=== PATIENT | female | born 1985 | race African-American/Black ===

== ENCOUNTER 2016-11-30 10:56 | Emergency (ER) | payer OTHER ==
[~2016-11-30] VITALS: Ht 165.1 cm; Wt 49.9 kg
[2016-11-30] MEDS ORDERED: fentaNYL PF VIAL 100 MCG/2 ML VIAL IV PRN (12:30)
[2016-11-30 12:33] LABS: BILIRUBIN,URINE NEGATIVE (NEG); GLUCOSE,URINE NEGATIVE (NEG); NITRITE,URINE POSITIVE (NEG); PH,URINE 5.5; PROTEIN,URINE 30 mg/dL (NEG-TRACE)
[2016-11-30 12:40] LABS: BACTERIA,URINE MANY /HPF (0-FEW); SQUAMOUS EPITHELIAL CELL,UR MOD /LPF; WBC,URINE TNTC /HPF (0-4)
[2016-11-30] MEDS ORDERED: ONDANSETRON PF 4 MG/2 ML VIAL. IV ONE (12:45)
--- NOTE | 2016-11-30 12:54 | RAD ---
Right upper quadrant abdominal ultrasound, 11/30/2016: History: Epigastric and right upper quadrant pain The gallbladder is within normal limits in size. There is no sonographic evidence of cholelithiasis. The gallbladder zheng are not thickened. No bile duct dilatation is seen. The visualized portions of liver, pancreas and right kidney are unremarkable. IMPRESSION: No significant abnormality is detected.
[2016-11-30] MEDS ORDERED: IV NORMAL SALINE 1000ML BAG 1,000 ML IV SCH (13:00)
[2016-11-30 13:21] LABS: BASO % 0 % (0-3); EOS % 0 % (0-3); HEMATOCRIT 37.1 % (36.0-47.0); HEMOGLOBIN 12.5 g/dL (12.0-15.5); LYMPH # 0.8 x10^3/uL (1.0-4.8); LYMPH % 7 % (24-48); MEAN CORPUSCULAR HEMOGLOBIN 32 pg (25-35); MEAN CORPUSCULAR HGB CONC 34 g/dL (31-37); MEAN CORPUSCULAR VOLUME 93 fL (79-100); MONO % 6 % (0-9); NEUT % 87 % (31-73); PLATELET COUNT 150 x10^3/uL (140-400); RED BLOOD COUNT 3.97 x10^6/uL (3.50-5.40); RED CELL DISTRIBUTION WIDTH 12.8 % (11.5-14.5); WHITE BLOOD COUNT 11.2 x10^3/uL (4.0-11.0)
[2016-11-30 13:34] LABS: CALCIUM 9.1 mg/dL (8.5-10.1); CREATININE 0.7 mg/dL (0.6-1.0); GFR 116.6; POTASSIUM 3.6 mmol/L (3.5-5.1)
[2016-11-30 13:37] LABS: ALBUMIN 3.8 g/dL (3.4-5.0); TOTAL BILIRUBIN 0.8 mg/dL (0.2-1.0); TOTAL PROTEIN 7.7 g/dL (6.4-8.2)
[2016-11-30 14:50] LABS: OVALOCYTES OCC; PLT ESTIMATE ADEQUATE (ADEQUATE); POLYCHROMASIA SLIGHT; TARGET CELLS OCC
[2016-11-30] MEDS ORDERED: CEFP200T PO (15:49)
[2016-11-30] MEDS ORDERED: HYDR-971 PO (15:49)
[2016-11-30] MEDS ORDERED: ONDA4TAB10 SL (15:49)
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
[2016-11-30 16:00] VITALS: BP 127/74
== END 2016-11-30 16:21 | disposition home or self-care (01) ==
LOC: ER 10:56
DX: N10 Acute pyelonephritis (principal); Z98.51 Tubal ligation status
CPT/HCPCS: 36415; 76705; 80053; 81001; 81025; 83690; 85007; 85027; 87086; 96361; 96365; 96375; 99285; J0690; J2405; J3010; J7030; 87186

== ENCOUNTER 2017-05-14 09:50 | Emergency (ER) | payer OTHER ==
[2017-05-14 10:38] LABS: URINE HCG POC HCG NEGATIVE (Negative)
[2017-05-14] MEDS ORDERED: 0.9 % SODIUM CHLORIDE 10 ML DISP.SYRIN. IV (11:00)
[2017-05-14 11:06] LABS: BILIRUBIN,URINE SMALL (NEG); CLARITY,URINE CLEAR; COLOR,URINE YELLOW; GLUCOSE,URINE NEGATIVE (NEG); NITRITE,URINE NEGATIVE (NEG); PROTEIN,URINE NEGATIVE (NEG-TRACE)
[2017-05-14 11:17] LABS: SQUAMOUS EPITHELIAL CELL,UR MANY /LPF
[2017-05-14 11:18] LABS: BACTERIA,URINE FEW /HPF (0-FEW)
[2017-05-14] MEDS: ONDANSETRON PF 4 MG/2 ML VIAL. IV (11:33)
[2017-05-14] MEDS: KETOROLAC 30 MG/ML INJ. IV (11:34)
[2017-05-14] MEDS: IV NORMAL SALINE 1000ML BAG 1,000 ML IV (11:37)
[2017-05-14] MEDS: MORPHINE SULFATE 4 MG/ML DISP.SYRIN. IV/SQ (11:38)
[2017-05-14 11:47] LABS: ADD MAN DIFF? NO
[2017-05-14 11:50] LABS: BASO % 0 % (0-3); EOS % 0 % (0-3); HEMATOCRIT 37.8 % (36.0-47.0); HEMOGLOBIN 12.3 g/dL (12.0-15.5); LYMPH # 0.5 x10^3/uL (1.0-4.8); LYMPH % 9 % (24-48); MEAN CORPUSCULAR HEMOGLOBIN 31 pg (25-35); MEAN CORPUSCULAR HGB CONC 33 g/dL (31-37); MEAN CORPUSCULAR VOLUME 95 fL (79-100); MONO # 0.4 x10^3/uL (0.0-1.1); MONO % 7 % (0-9); NEUT # 4.3 x10^3uL (1.8-7.7); NEUT % 83 % (31-73); PLATELET COUNT 151 x10^3/uL (140-400); RED BLOOD COUNT 3.97 x10^6/uL (3.50-5.40); RED CELL DISTRIBUTION WIDTH 13.2 % (11.5-14.5); WHITE BLOOD COUNT 5.2 x10^3/uL (4.0-11.0)
[2017-05-14] MEDS ORDERED: diphenhydrAMINE 50 MG/ML VIAL (12:21)
[2017-05-14] MEDS: diphenhydrAMINE 50 MG/ML VIAL IVP (12:23)
[2017-05-14 12:28] LABS: ALBUMIN 3.6 g/dL (3.4-5.0); ALK PHOS 42 U/L (46-116); ALT (SGPT) 14 U/L (14-59); ANION GAP 11 (6-14); AST (SGOT) 17 U/L (15-37); BLOOD UREA NITROGEN 6 mg/dL (7-20); CALCIUM 8.1 mg/dL (8.5-10.1); CARBON DIOXIDE 25 mmol/L (21-32); CHLORIDE 105 mmol/L (98-107); CREATININE 0.7 mg/dL (0.6-1.0); DIRECT BILIRUBIN 0.1 mg/dL (0.0-0.2); GFR 115.9; GLUCOSE 91 mg/dL (70-99); LIPASE 100 U/L (73-393); SODIUM 141 mmol/L (136-145); TOTAL BILIRUBIN 0.5 mg/dL (0.2-1.0); TOTAL PROTEIN 6.9 g/dL (6.4-8.2)
[2017-05-14 12:35] LABS: POTASSIUM 2.9 mmol/L (3.5-5.1)
[2017-05-14] MEDS: POTASSIUM CHLORIDE 20 MEQ TABLET.ER. PO (13:18)
== END 2017-05-14 13:29 | disposition home or self-care (01) ==
LOC: ER 09:50
DX: R10.13 Epigastric pain (principal); R11.2 Nausea with vomiting, unspecified; E87.6 Hypokalemia; M79.652 Pain in left thigh; Z98.51 Tubal ligation status; W10.9XXA Fall (on) (from) unspecified stairs and steps, initial encounter; Y93.89 Activity, other specified; Y99.8 Other external cause status; Y92.89 Other specified places as the place of occurrence of the external cause
CPT/HCPCS: 36415; 73552; 76705; 80048; 80076; 81001; 81025; 83690; 85025; 87086; 96361; 96374; 96375; 99285-25; J1200; J1885; J2060; J2270; J2405; J7030

== ENCOUNTER 2019-10-09 15:56 | Emergency (ER) | payer MEDICAID, OTHER ==
[~2019-10-09] VITALS: Ht 165.1 cm; Wt 70.0 kg
[~2019-10-09 15:56] MED LIST: CEFP200T PO; DICY10CA53 PO; HYDR-3164 PO; ONDA4TAB10 PO; ONDA4TAB10 SL; POTA10TA12 PO
[2019-10-09 16:00] VITALS: BP 185/80
[2019-10-09] MEDS ORDERED: DEXAMETHASONE SOD PHOS 20 MG/5 ML VIAL. IM ONE (16:30)
--- NOTE | 2019-10-09 16:58 | RAD ---
LUMBAR SPINE 2-3V 10/09/2019 4:23 PM Indication: Leg pain for 2 weeks radiating to the right leg after heavy lifting COMPARISON: None available TECHNIQUE: 3 views of the lumbar spine are provided. 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 Mild levoconvex curvature of the lumbar spine centered at L2-L3. Alignment of the lumbar spine is normal. Vertebral body heights are maintained. No acute fracture is identified. Disc heights are maintained. No significant endplate degenerative changes are identified. There is no significant facet arthropathy. No significant osseous neuroforaminal stenosis or spinal canal stenosis. Nonobstructive bowel gas pattern. Visualized portions of the sacrum appear intact. Impression: No acute fracture of the lumbar spine. Minimal levoconvex curvature of the lumbar spine. No spondylolysis or spondylolisthesis. 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 Electronically signed by: Madison Montesinos MD (10/09/2019 4:55 PM) LUCIEN
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
[2019-10-09] MEDS ORDERED: CYCL10TA2 PO (18:13)
[2019-10-09] MEDS ORDERED: NAPR-514 PO (18:13)
== END 2019-10-09 18:25 | disposition home or self-care (01) ==
LOC: ER 15:56
DX: M54.41 Lumbago with sciatica, right side (principal); R20.2 Paresthesia of skin; R53.1 Weakness; Z98.51 Tubal ligation status; Z98.890 Other specified postprocedural states
CPT/HCPCS: 72100; 96372; 99283; J1100

== ENCOUNTER 2020-04-09 09:20 | Emergency (ER) | payer MEDICAID ==
[~2020-04-09] VITALS: Ht 165.1 cm; Wt 56.6 kg
[~2020-04-09 09:20] MED LIST changes: +CYCL10TA2 PO; +NAPR-514 PO
[2020-04-09] MEDS ORDERED: AZITHROMYCIN 250 MG TABLET. PO ONE (11:30)
[2020-04-09] MEDS ORDERED: cefTRIAXone IM 250 MG VIAL IM ONE (11:30)
[2020-04-09] MEDS ORDERED: KETOROLAC 30 MG/ML VIAL. IV ONE (11:30)
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
[2020-04-09] MEDS ORDERED: KETOROLAC 30 MG/ML VIAL. IM ONE (11:45)
[2020-04-09 11:46] LABS: BILIRUBIN,URINE NEGATIVE (NEG); CLARITY,URINE CLOUDY; COLOR,URINE YELLOW; NITRITE,URINE POSITIVE (NEG); PH,URINE 7.5 (<5.0-8.0); PROTEIN,URINE NEGATIVE (NEG-TRACE)
[2020-04-09 12:00] LABS: BACTERIA,URINE MANY /HPF (0-FEW); RBC,URINE OCC /HPF (0-2); WBC,URINE 20-40 /HPF (0-4)
--- NOTE | 2020-04-09 12:24 | RAD ---
Transabdominal and endovaginal pelvic ultrasound. INDICATION: Right adnexal and cervical motion tenderness with pelvic exam. Pelvic pain and white discharge. Patient is 35 years old and LMP is 02/08/2020. . COMPARISON: None. TECHNIQUE: Grayscale color and spectral Doppler imaging of the pelvis was performed transabdominally and endovaginally. FINDINGS: Uterus measures 8.8 x 3.7 x 4.3 cm. A scar is evident with mild peripheral vascularity. Upper cervical nabothian cysts are evident. The endometrial stripe measures 6.2 mm. Right ovary measures 3.8 x 2.9 x 1.5 cm and demonstrates normal blood flow. Prominent right adnexal veins are present. The left ovary measures 2.7 x 2.4 x 2.4 cm and demonstrates normal blood flow. Mild prominent left adnexal veins are present. No pelvic free fluid or fluid collection identified. IMPRESSION: Sonographic findings compatible with pelvic congestion syndrome (in the appropriate clinical context). Otherwise no acute findings to explain pelvic pain. No fluid collection. Electronically signed by: Jaime Holland MD (04/09/2020 12:21 PM) [id number]
[2020-04-09] MEDS ORDERED: CEPH-264 PO (13:24)
[2020-04-09 13:28] VITALS: BP 159/88
[2020-04-12 22:09] LABS: GC PROBE Negative (Negative)
== END 2020-04-09 13:33 | disposition home or self-care (01) ==
LOC: ER 09:20
DX: N30.00 Acute cystitis without hematuria (principal); N94.89 Other specified conditions associated with female genital organs and menstrual cycle; Z20.2 Contact with and (suspected) exposure to infections with a predominantly sexual mode of transmission; Z98.51 Tubal ligation status
CPT/HCPCS: 76830; 76856; 81001; 81025; 87086; 87491; 87591; 96372; 99285; J0696; J1885; Q0111; 87077; 87186